=== PATIENT | female | born 1955 | race Caucasian/White ===

== ENCOUNTER 2021-07-08 12:39 | Emergency (ER) | payer OTHER ==
[2021-07-08 13:18] VITALS: BMI 40.2
[2021-07-08] MEDS ORDERED: CASIRIVIMAB/IMDEVIMAB 10 ML in SODIUM CHLORIDE 100 ML IVPB ONE (16:30)
[2021-07-08 17:24] VITALS: TEMP 99.1
[2021-07-08 17:45] VITALS: BP 149/87; PULSE 82
== END 2021-07-08 18:58 | disposition home or self-care (01) ==
LOC: JCOVINFU 12:39
DX: U07.1 COVID-19 (principal)
CPT/HCPCS: 99284-25; M0240; Q0240